=== PATIENT | female | born 1990 ===

== ENCOUNTER 2019-01-11 22:24 | Inpatient (IN) | payer MEDICAID ==
[2019-01-11] MEDS ORDERED: AMPICILLIN/NS 2 GM/100 ML 2 GM/100 ML BAG IV ONE (23:09)
[2019-01-11] MEDS ORDERED: ZOFRAN IV PRN (23:09)
[2019-01-11] MEDS ORDERED: BRETHINE IVP PRN (23:09)
[2019-01-11] MEDS ORDERED: NARCAN 0.4 MG/1 ML IV PRN (23:09)
[2019-01-11] MEDS ORDERED: BRETHINE SUB-Q PRN (23:09)
[2019-01-11] MEDS ORDERED: STADOL IV PRN (23:09)
[2019-01-11] MEDS ORDERED: XYLOCAINE 2% INFILTRATI ONE (23:09)
[2019-01-11] MEDS ORDERED: SUBLIMAZE IV PRN (23:09)
[2019-01-11] MEDS ORDERED: MINERAL OIL PO PRN (23:09)
[2019-01-11 23:27] LABS: Hematocrit 34.8 % (30.3-42.9); Hemoglobin 11.5 gm/dl (10.1-14.3); Mean Corpuscular HGB Conc 33 % (30-34); Mean Corpuscular Volume 83 fl (79-97); Platelet Count 225 K/mm3 (140-440); Red Blood Count 4.22 M/mm3 (3.65-5.03); Red Cell Distribution Width 14.8 % (13.2-15.2)
[2019-01-11] MEDS ORDERED: LACTATED RINGERS 1,000 ML IV SCH (23:45)
[2019-01-11] MEDS ORDERED: PITOCin/NS 20 UNIT/1000ML DRIP 20 UNITS/1,000 ML BAG IV SCH (23:45)
[2019-01-11] MEDS ORDERED: PITOCin/NS 30 UNIT/500ML 30 UNITS/500 ML BAG IV SCH (23:45)
--- NOTE | 2019-01-12 02:13 | History and Physical Report ---
History of Present Illness Date of examination: 01/12/19 Date of admission: 01/11/19 23:27 Chief complaint: contractions History of present illness: Pt is a 28 year old EMILY 01/31/19 at 37w2d who presents with regular contractions and bloody show. She denies leakage of fluid. She has had care with Dr Carlos Wang which she reports is uncomplicated, but her records are unavailable for review. She reports her GBS status as negative. Past History Past Medical History: other (morbid obesity ) Past Surgical History: no surgical history Social history: no significant social history - Obstetrical History Expected Date of Delivery: 01/31/19 Actual Gestation: 37 Week(s) 2 Day(s) : 5 Para: 4 Hx # Term Pregnancies: 4 Number of Pregnancies: 0 Spontaneous Abortions: 0 Induced : 0 Number of Living Children: 4 Medications and Allergies Allergies Allergy/AdvReac Type Severity Reaction Status Date / Time No Known Allergies Allergy Unverified 05/31/13 22:18 Home Medications Medication Instructions Recorded Confirmed Last Taken Type No Known Home Medications [No 01/11/19 01/11/19 Unknown History Reported Home Medications] Active Meds: Active Medications Butorphanol Tartrate (Stadol) 2 mg IV Q2H PRN PRN Reason: Pain , Severe (7-10) Last Admin: 01/12/19 00:24 Dose: 2 mg Documented by: Ephedrine Sulfate (Ephedrine Sulfate) 10 mg IV Q2M PRN PRN Reason: Hypotension Fentanyl (Sublimaze) 100 mcg IV Q2H PRN PRN Reason: Labor Pain Oxytocin/Sodium Chloride (Pitocin/Ns 20 Unit/1000ml Drip) 20 units in 1,000 mls @ 125 mls/hr IV DIRECT CLARE Oxytocin/Sodium Chloride (Pitocin/Ns 30 Unit/500ml) 30 units in 500 mls @ 4 mls/hr IV TITR CLARE; Protocol Lactated Ringer's (Lactated Ringers) 1,000 mls @ 125 mls/hr IV DIRECT CLARE Last Admin: 01/11/19 23:54 Dose: 125 mls/hr Documented by: Ampicillin Sodium (Ampicillin/Ns 1 Gm/50 Ml) 1 gm in 50 mls @ 100 mls/hr IV Q4H R CLARE; Protocol Mineral Oil (Mineral Oil) 30 ml PO QHS PRN PRN Reason: Constipation Naloxone HCl (Narcan 0.4 Mg/1 Ml) 0.1 mg IV Q2MIN PRN PRN Reason: Res Rate </= 8 or 02 SAT < 92% Ondansetron HCl (Zofran) 4 mg IV Q8H PRN PRN Reason: Nausea And Vomiting Terbutaline Sulfate (Brethine) 0.25 mg SUB-Q ONCE PRN PRN Reason: Hyperstimulation/Hypertonicity Terbutaline Sulfate (Brethine) 0.25 mg IVP ONCE PRN PRN Reason: Hyperstimulation/Hypertonicity Review of Systems All systems: negative - Vital Signs Vital signs: Vital Signs Pulse BP 73 125/81 01/11/19 22:43 01/11/19 22:43 Temp Pulse Resp BP Pulse Ox 97.8 F 78 18 112/72 99 01/11/19 23:52 01/11/19 23:52 01/12/19 00:24 01/11/19 23:52 01/11/19 23:22 - Physical Exam Breasts: Positive: deferred Cardiovascular: Regular rate Lungs: Positive: Clear to auscultation Abdomen: Positive: soft (obese , gravid ) Genitourinary (Female): Positive: normal external genitalia Uterus: Positive: enlarged (gravid ) Extremities: Positive: edema (trace) - Obstetrical FHR: auscultation normal Cervical Dilatation: 10 Cervical Effacement Percentage: 100 station: +1 Uterine Contraction Pattern: Regular Uterine Tone Measurement Phase: Resting Uterine Contraction Intensity: Strong/Firm Results Result Diagrams: 01/11/19 23:11 Abnormal lab results 01/11/19 Range/Units 23:11 MCH 27 L (28-32) pg All other labs normal. Assessment and Plan A: IUP at 37w2d Active labor Morbid Obesity GBS unknown P: Admit to labor and delivery GBS prophylaxis Routine intrapartum care labs
--- NOTE | 2019-01-12 02:22 | Procedure Note ---
OB Delivery Note - Delivery Date of Delivery: 01/12/19 Surgeon: MCKAY NGO Estimated blood loss: other (400 mL) - Vaginal Delivery presentation: vertex Delivery position: OA Delivery induction: none Delivery augmentation: rupture of membranes Delivery monitor: external FHT, external uterine Route of delivery: Delivery placenta: spontaneous Delivery cord: nuchal cord, 3 umbilical vessels Episiotomy: none Delivery laceration: none Anesthesia: intravenous - A at 1 minute: 8 at 5 minutes: 9 Infant Gender: Male (3303g (7lb 4.5 oz) @ 0153 am)
[2019-01-12 02:42] LABS: Hepatitis C Virus Antibody Non-Reactive (NonReactive)
[2019-01-12] MEDS ORDERED: AMPICILLIN/NS 1 GM/50 ML 1 GM/50 ML BAG IV SCH (03:10)
[2019-01-12] MEDS ORDERED: LANSINOH TP PRN ×2 (03:56)
[2019-01-12] MEDS ORDERED: PHENERGAN PR PRN (03:56)
[2019-01-12] MEDS ORDERED: PITOCin/NS 20 UNIT/1000ML DRIP 20 UNITS/1,000 ML BAG IV SCH (03:56)
[2019-01-12] MEDS ORDERED: SODIUM CHLORIDE FLUSH SYRINGE 10 ML IV PRN (03:56)
[2019-01-12] MEDS ORDERED: DULCOLAX PR PRN (03:56)
[2019-01-12] MEDS ORDERED: TYLENOL PO PRN (03:56)
[2019-01-12] MEDS ORDERED: NORCO 5/325 PO PRN (03:56)
[2019-01-12] MEDS ORDERED: TUCKS PAD TP PRN (03:56)
[2019-01-12] MEDS ORDERED: BENADRYL PO PRN (03:56)
[2019-01-12] MEDS ORDERED: DERMOPLAST TP PRN (03:56)
[2019-01-12] MEDS ORDERED: ZOFRAN IV PRN (03:56)
[2019-01-12] MEDS ORDERED: MILK OF MAGNESIA PO PRN (03:56)
[2019-01-12] MEDS ORDERED: PHENERGAN PO PRN (03:56)
[2019-01-12] MEDS: IBUPROFEN PO PRN ×3 (04:25→20:23)
[2019-01-12 15:25] LABS: Hemoglobin 11.4 gm/dl (10.1-14.3)
[2019-01-13] MEDS ORDERED: M-M-R II VACCINE SUB-Q ONE ×2 (02:23→14:53)
[2019-01-13] MEDS: IBUPROFEN PO PRN ×3 (03:18→23:37)
[2019-01-13] MEDS ORDERED: BOOSTRIX IM ONE (06:00)
--- NOTE | 2019-01-13 11:14 | Discharge Summary ---
Providers - Providers Date of Admission: 01/11/19 23:27 Date of discharge: 01/14/19 Attending physician: MCKAY NGO Primary care physician: MCKAY NGO Hospitalization Reason for admission: active labor Delivery: Episiotomy: none Laceration: none Incision: normal Other procedures: none complications: none Discharge diagnosis: IUP at term delivered [place] baby: male Hospital course: unremarkable hospital course. . male. d/c home day 2 Condition at discharge: Good Disposition: DC-01 TO HOME OR SELFCARE Plan - Discharge Medications Prescriptions: Ibuprofen [Motrin] 800 mg PO Q8HR PRN #30 tablet PRN Reason: Pain, Moderate (4-6) HYDROcodone/APAP 5-325 [[place] 5/325] 1 each PO Q6HR PRN #20 tablet PRN Reason: Pain - Provider Discharge Summary Activity: routine, no sex for 6 weeks, no strenuous exercise Diet: routine Instructions: routine Additional instructions: [] Smoking cessation referral if applicable(refer to patient education folder for contact #) [] Refer to [facility] Booklet Call your doctor immediately for: * Fever > 100.5 * Heavy vaginal bleeding ( >1 pad per hour) * Severe persistent headache * Shortness of breath * Reddened, hot, painful area to leg or breast * Drainage or odor from incision. * Keep incision clean and dry at all times and follow doctor's instructions regarding bathing/showering - Follow up plan Follow up: MCKAY NGO MD [Primary Care Provider] - 02/08/19
--- NOTE | 2019-01-13 11:14 | Progress Note ---
Assessment and Plan A/P POD1 s/p doing well consider d/c home chance Subjective - Subjective Date of service: 01/13/19 Principal diagnosis: s/p Patient reports: appetite normal, voiding normally, pain well controlled, ambulating normally [place]: doing well Objective - Vital Signs Latest vital signs: Vital Signs Temp Pulse Resp BP BP Pulse Ox 01/13/19 09:02 98.1 F 75 24 104/69 97 01/13/19 03:18 18 01/12/19 23:56 98.4 F 77 18 105/69 93 01/12/19 20:23 18 01/12/19 16:00 98.6 F 75 20 113/76 01/12/19 12:28 97.7 F 79 20 108/70 97 Intake and Output 01/12/19 01/13/19 01/13/19 23:59 07:59 15:59 Intake Total 120 360 Output Total 1100 Balance -980 360 Intake: Oral 120 Intake, Free Water 360 Output: Urine 1100 Void 1100 Other: Total, Intake Amount 120 Total, Output Amount 1100 # Voids Void 3 2 - Exam Breasts: Present: normal Cardiovascular: Present: Regular rate, Normal S1 Lungs: Present: Clear to auscultation, Normal air movement Abdomen: Present: normal appearance, soft, normal bowel sounds. Absent: distention, tenderness, guarding Uterus: Present: normal, firm, fundal height below umbilicus. Absent: bogginess, tenderness Extremities: Present: normal Incision: Present: normal
[2019-01-14 09:33] VITALS: BP 106/62
== END 2019-01-14 11:50 | disposition home or self-care (01) | DRG 775 ==
LOC: TRG 22:24 → LD 23:27 → OB 01-12 03:37
PROVIDERS: ADMIT Obstetrics & Gynecology; ATTEND Obstetrics & Gynecology
PROC: 10E0XZZ Delivery of Products of Conception, External Approach (ICD-10-PCS; principal; 2019-01-12)
PROC: 3E0234Z Introduction of Serum, Toxoid and Vaccine into Muscle, Percutaneous Approach (ICD-10-PCS; 2019-01-13)
DX: O69.81X0 Labor and delivery complicated by cord around neck, without compression, not applicable or unspecified (principal); O99.214 Obesity complicating childbirth; E66.01 Morbid (severe) obesity due to excess calories; Z3A.37 37 weeks gestation of pregnancy; Z37.0 Single live birth; Z23 Encounter for immunization; Z68.41 Body mass index [BMI] 40.0-44.9, adult
CPT/HCPCS: 36415; 85014; 85018; 85027; 86592; 86706; 86762; 86803; 86850; 86900; 86901; 87806; 90707; 96365; 96368; 96374; G0378; J0290; J0595; J2590; J7120